=== PATIENT | male | born 1950 | race Asian ===

== ENCOUNTER 2016-06-30 15:27 | Emergency (ER) | payer MEDICAID ==
[~2016-06-30] VITALS: Ht 182.9 cm; Wt 90.7 kg
[2016-06-30] MEDS ORDERED: MORPHINE SULFATE INJ 4 MG/ML DISP.SYRIN ONE (16:37)
[2016-06-30] MEDS ORDERED: MORPHINE SULFATE INJ 2 MG/ML DISP.SYRIN ONE (16:37)
[2016-06-30] MEDS ORDERED: MORPHINE SULFATE INJ 2 MG/ML DISP.SYRIN IM ONE (17:00)
[2016-06-30 18:02] VITALS: BP 130/70
== END 2016-06-30 18:03 | disposition home or self-care (01) ==
LOC: ER 15:28
DX: S22.42XA Multiple fractures of ribs, left side, initial encounter for closed fracture (principal); I10 Essential (primary) hypertension; E11.9 Type 2 diabetes mellitus without complications; Y04.2XXA Assault by strike against or bumped into by another person, initial encounter; Y93.89 Activity, other specified; Y92.89 Other specified places as the place of occurrence of the external cause; Y99.9 Unspecified external cause status
CPT/HCPCS: 71010; 93005; 96372; 99284; A4606; J2270 ×2; Z7610